=== PATIENT | female | born 1990 | race African-American/Black ===

== ENCOUNTER 2020-03-25 13:41 | Emergency (ER) | payer SELFPAY ==
[~2020-03-25] VITALS: Ht 170.2 cm; Wt 63.5 kg
--- NOTE | 2020-03-25 13:45 | NUR ---
ER BED 1 PT BIB SELF WITH THUMB LACEARTION WITH BLEEDING. APPLIED PRESSURE TO AFFECTED AREA TO STOP BLEEDING. AWAITING TO BE SEEN BY MD.
[2020-03-25 13:46] VITALS: BP 132/86
--- NOTE | 2020-03-25 13:52 | NUR ---
seen by MD with order to do wound cleaning. noted
--- NOTE | 2020-03-25 14:11 | NUR ---
TX DONE ORDERED AND TOLERATED WELL
== END 2020-03-25 14:38 | disposition home or self-care (01) ==
LOC: ER 13:44
DX: S61.002A Unspecified open wound of left thumb without damage to nail, initial encounter (principal); Z98.890 Other specified postprocedural states; W26.0XXA Contact with knife, initial encounter; Y93.89 Activity, other specified; Y92.89 Other specified places as the place of occurrence of the external cause; Y99.8 Other external cause status
CPT/HCPCS: 99282; A6403 ×3

== ENCOUNTER 2021-05-23 18:03 | Inpatient (IN) | payer SELFPAY ==
[~2021-05-23] VITALS: Ht 172.7 cm; Wt 70.8 kg
--- NOTE | 2021-05-23 18:03 | NUR ---
BIBS C/O SEVERE LOWER BACK PAIN THAT RADIATED TO HER ABDOMEN SINCE LAST NIGHT. PT ALSO HAS CHILLS, HEADACHE, NAUSEA, AND VOMITTED LAST NIGHT. PT VITALS ARE WITHIN NORMAL LIMITS. BREATHING IS REGULAR AND UNLABORED.
--- NOTE | 2021-05-23 18:51 | NUR ---
IV ESTABLISHED R AC 20G. LABS WERE COLLECTED AND SENT.
[2021-05-23 19:14] LABS: BASOPHILS # (AUTO) 0.1 K/uL (0.0-0.2); BASOPHILS % (AUTO) 0.5 % (0.0-2.0); EOSINOPHILS % (AUTO) 0.2 % (0.0-6.0); HEMATOCRIT 38 % (33-45); HEMOGLOBIN 11.6 g/dL (11.5-14.8); LYMPHOCYTES # (AUTO) 1.5 K/uL (0.8-4.8); LYMPHOCYTES % (AUTO) 13.5 % (20.0-44.0); MEAN CORPUSCULAR HGB CONC 31 g/dl (31.0-36.0); MEAN CORPUSCULAR VOLUME 71 fL (82-100); MONOCYTES # (AUTO) 1.1 K/uL (0.1-1.30); NEUTROPHILS # (AUTO) 8.2 K/uL (1.8-8.9); NEUTROPHILS % (AUTO) 75.8 % (43.0-81.0); PLATELET COUNT (AUTO) 300 K/uL (150-450); RED BLOOD CELL COUNT(AUTO) 5.32 MIL/uL (4.0-5.2); WHITE BLOOD COUNT (AUTO) 10.9 K/uL (4.3-11.0)
[2021-05-23 19:28] LABS: BILIRUBIN,URINE Negative (NEGATIVE); COLOR,URINE YELLOW (YELLOW); LEUKOCYTE ESTERASE ,URINE Trace (NEGATIVE); NITRITE, URINE Negative (NEGATIVE); PH,URINE 5.5 (5.0-8.0); PROTEIN,URINE Negative (NEGATIVE); UGLUCOSE Negative (NEGATIVE); UROBILINOGEN,URINE 0.2 EU/dL (0.2)
[2021-05-23 19:32] LABS: RBC,URINE NONE SEEN /HPF (0-2)
[2021-05-23 19:33] LABS: BACTERIA,URINE 1+ /HPF (None Seen); SQUAMOUS EPITHELIAL CELL,UR Many /HPF (None Seen)
[2021-05-23] MEDS ORDERED: KETOROLAC TROMETHAMINE 15 MG/ML VIAL ONE (19:43)
[2021-05-23 19:54] LABS: CALCIUM, SERUM 7.9 mg/dL (8.5-10.1); POTASSIUM 4.3 mmol/L (3.5-5.1)
[2021-05-23 19:59] LABS: ALBUMIN 3.2 g/dL (3.4-5.0); BILIRUBIN,DIRECT 0.1 mg/dL (0.0-0.2); BILIRUBIN,TOTAL 0.5 mg/dL (0.2-1.0); TOTAL PROTEIN, SERUM 6.9 g/dL (6.4-8.2)
[2021-05-23] MEDS ORDERED: KETOROLAC TROMETHAMINE INJ 30 MG/ML VIAL IV ONE (20:00)
--- NOTE | 2021-05-23 22:28 | NUR ---
EPIC PANEL PAGED
[2021-05-23] MEDS ORDERED: IV NS 0.9% 1,000 ML BAG IV ONE (22:30)
[2021-05-23] MEDS ORDERED: CEFTRIAXONE 1GM BAG (ER ONLY) 1 GM/50 ML PIGGYBACK IV ONE (22:30)
[2021-05-23] MEDS ORDERED: CEFTRIAXONE 1GM BAG (ER ONLY) 50 ML IV ONE (22:35)
[2021-05-23] MEDS ORDERED: hydrALAZINE HCL IV 20 MG VIAL IV PRN (23:00)
[2021-05-23] MEDS ORDERED: ACETAMINOPHEN 325 MG TABLET PO PRN (23:00)
[2021-05-24 00:55] LABS: CREATININE, URINE 77.3 MG/DL (30.0-125.0)
--- NOTE | 2021-05-24 01:16 | NUR ---
RN notes Received report from ER nurse TRELL Ornelas.
--- NOTE | 2021-05-24 01:16 | NUR ---
REPORT GIVEN TO TRELL BLACKMAN FOR BRUCE
[2021-05-24 01:25] VITALS: BP 128/78
--- NOTE | 2021-05-24 01:25 | NUR ---
PT BEING TRANSPORTED TO UNIT ON [facility] WITH EMT AT BEDSIDE ON STABLE CONDITION.
[2021-05-24 01:40] VITALS: BP 128/78
--- NOTE | 2021-05-24 01:40 | NUR ---
MS RN ADMITTING NOTES RECEIVED PATIENT ON [facility]. PATIENT IS A/O X4. PATIENT IS ABLE TO AMBULATE WITH STEADY GAIT. PATIENT WITH REGULAR AND UNLABORED BREATHING ON ROOM AIR, TOLERATED WELL. NO SIGNS AND SYMPTOMS OF DISTRESS NOTED. NO COMPLAIN OF PAIN OR DISCOMFORT AT THIS TIME. PATIENT HAS STEADY GAIT. IV ACCESS RAC G#20 SL. ACCESS INTACT CLEAN AND FLUSHES WELL. SKIN ASSESSMENT CHECKED AND PERFORMED. PATIENT'S SKIN IS INTACT BUT PATIENT REFUSED TO HAVE HER BACK CHECKED. PATIENT'S BELONGINGS CHECKED BY ADRIANA MARTINEZ. SAFETY PRECAUTIONS ENFORCED WITH BED LOCKED AND AT LOWEST POSITION. SIDERAILS UP X2. CALL LIGHT WITHIN REACH AT ALL TIMES. WILL CONTINUE TO MONITOR PATIENT.
[2021-05-24] MEDS: IV NS 0.9% 1,000 ML IV PRN ×2 (01:43→20:13)
--- NOTE | 2021-05-24 06:40 | NUR ---
RN ms closing notes Pt is resting in bed comfortably. Pt is alert and orientedX4. Respiration is normal in room air. No SOB. VS is stable. Routine meds were given ordered. IV sites at RAC# 20 is clean, intact and infuising NS@ 75 ml/hr. Kept Pt clean, dry and comfortable. All needs met and attended. SAfety precautions is maintained. Bed at low position, brakes locked, side rails upX2 and call light is within reach. Will endorse to am nurse for BRUCE.
[2021-05-24 07:10] LABS: BASOPHILS % (AUTO) 0.5 % (0.0-2.0); EOSINOPHILS % (AUTO) 0.5 % (0.0-6.0); HEMATOCRIT 30 % (33-45); HEMOGLOBIN 9.4 g/dL (11.5-14.8); LYMPHOCYTES # (AUTO) 1.4 K/uL (0.8-4.8); LYMPHOCYTES % (AUTO) 16.1 % (20.0-44.0); MEAN CORPUSCULAR HGB CONC 31 g/dl (31.0-36.0); MEAN CORPUSCULAR VOLUME 71 fL (82-100); MONOCYTES % (AUTO) 11.9 % (2.0-12.0); NEUTROPHILS # (AUTO) 6.2 K/uL (1.8-8.9); PLATELET COUNT (AUTO) 232 K/uL (150-450); RED BLOOD CELL COUNT(AUTO) 4.28 MIL/uL (4.0-5.2); WHITE BLOOD COUNT (AUTO) 8.7 K/uL (4.3-11.0)
[2021-05-24 07:32] LABS: ALBUMIN 3.1 g/dL (3.4-5.0); BILIRUBIN,TOTAL 0.4 mg/dL (0.2-1.0); CALCIUM, SERUM 8.5 mg/dL (8.5-10.1); CREATININE 2.5 mg/dL (0.6-1.3); MAGNESIUM 2.3 mg/dL (1.8-2.4); PHOSPHORUS 4.2 mg/dL (2.5-4.9); POTASSIUM 3.8 mmol/L (3.5-5.1); TOTAL PROTEIN, SERUM 6.8 g/dL (6.4-8.2)
--- NOTE | 2021-05-24 07:49 | NUR ---
RN OPENING NOTES RECEIVED PT RESTING IN BED, NO SIGNS OF ACUTE DISTRESS NOTED. ON ROOM AIR, NO SOB NOTED, BREATHING EVEN AND UNLABORED. IV ACCESS ON RAC #20G INTACT AND PATENT WITH NS @75ML/HR RUNNING. NO C/O PAIN AT THIS TIME. SAFETY MEASURES IN PLACE, BED LOCK AND IN LOWEST POSITION, SR UP X2, CALL LIGHT PLACED WITHIN EASY REACH. WILL CONTINUE TO MONITOR.
[2021-05-24 08:00] VITALS: BP 130/68
[2021-05-24] MEDS: CEFTRIAXONE 1 G in IV D5W 50 ML IV SCH (09:01)
[2021-05-24] MEDS: HEPARIN SODIUM, PORCINE 5000 UNITS/1 ML VIAL SQ SCH ×2 (09:06→20:15)
[2021-05-24] MEDS: MORPHINE SULFATE INJ 2 MG/ML DISP.SYRIN IV PRN ×2 (10:21→16:58)
--- NOTE | 2021-05-24 10:21 | NUR ---
RN NOTES MORPHINE SULFATE 2 MG IVP GIVEN FOR C/O 01/28 LOWER BACK PAIN. WILL RE-ASSESS EFFECTIVENESS OF MEDICATION.
[2021-05-24 16:00] VITALS: BP 122/72
--- NOTE | 2021-05-24 16:58 | NUR ---
RN NOTES MORPHINE SULFATE 2MG IVP GIVEN FOR C/O LOWER BACK PAIN. WILL CONTINUE TO MONITOR.
--- NOTE | 2021-05-24 18:48 | NUR ---
MS RN CLOSING NOTES PATIENT RESTING,ON BED, AWAKE. NO SIGNS OF ACUTE DISTRESS NOTED. REMAINS ON ROOM AIR, NO SOB NOTED, BREATHING EVEN AND UNLABORED. IV ACCESS ON RIGHT HAND INTACT AND PATENT WITH NS @75ML/HR INFUSING WELL. MEDICATED FOR PAIN NEEDED. SAFETY PRECAUTIONS OBSERVED, BED LOCKED AND IN LOWEST POSITION, SR UP X2, CALL LIGHT PLACED WITHIN EASY REACH. WILL ENDORSE TO NEXT SHIFT.
--- NOTE | 2021-05-24 19:30 | NUR ---
MS/RN OPENING NOTE RECEIVED PATIENT RESTING IN BED. AWAKE, ALERT AND ORIENTED X 4. ABLE TO MAKE NEEDS KNOWN. DENIES PAIN AT THIS TIME. CONTINUES ON ROOM AIR WITH NO S/SX OF RESPIRATORY DISTRESS NOTED. IV ACCESS TO RIGHT HAND #22G INTACT AND PATENT. CONTINUES ON IVF NS 0.9% @ 75ML/HR. CONTINUES ON IV ABX. CALL LIGHT WITHIN REACH. ASPIRATION, FALL AND SAFETY PRECAUTIONS MAINTAINED. WILL CONTINUE TO MONITOR.
[2021-05-24 20:00] VITALS: BP 134/61
[2021-05-24] MEDS: ONDANSETRON HCL/PF 4 MG/2 ML VIAL IVP PRN (20:13)
--- NOTE | 2021-05-24 20:15 | NUR ---
MS/RN NOTE PATIENT WITH C/O NAUSEA. ADMINISTERED PRN ZOFRAN PER MD ORDER. WILL CONTINUE TO MONITOR.
--- NOTE | 2021-05-24 20:20 | NUR ---
MS/RN NOTE REPORT GIVEN TO FACUNDO RN FOR BRUCE.
[2021-05-25] MEDS: MORPHINE SULFATE INJ 2 MG/ML DISP.SYRIN IV PRN ×2 (02:17→08:32)
[2021-05-25] MEDS: ONDANSETRON HCL/PF 4 MG/2 ML VIAL IVP PRN (02:17)
--- NOTE | 2021-05-25 02:17 | NUR ---
PT C/O PAIN IN THE ABDOMEN AND NAUSEA. PER PT REQUEST MORPHINE 2MG/ML IV Q4HR PRN, ZOFRAN 4MG/2ML IVP Q6HR PRN ADMINISTERED AT THIS TIME PER ORDER. WILL CONTINUE TO MONITOR.
--- NOTE | 2021-05-25 06:30 | NUR ---
MS RN CLOSING NOTE PT REMAINED STABLE THROUGHOUT SHIFT. WILL ENDORSE TO ONCOMING RN FOR BRUCE.
[2021-05-25] MEDS: IV NS 0.9% 1,000 ML IV PRN (06:50)
[2021-05-25 07:08] LABS: BASOPHILS # (AUTO) 0.1 K/uL (0.0-0.2)
[2021-05-25 07:09] LABS: CALCIUM, SERUM 8.7 mg/dL (8.5-10.1); CREATININE 2.5 mg/dL (0.6-1.3); MAGNESIUM 1.9 mg/dL (1.8-2.4); POTASSIUM 3.5 mmol/L (3.5-5.1)
--- NOTE | 2021-05-25 07:19 | NUR ---
RECEIVED REPORT FROM LAB JACE, REPORTING SRITICAL LAB VALUE FOR PLT OF [id number], CHARGE NURSE NALINI MADE AWARE
--- NOTE | 2021-05-25 07:24 | NUR ---
CALLED THE LAB AND SPOKE TO CHUCK, CHARGE NURSE ART AND NALINI ASKED FOR HIM TO REDRAW THE BLOOD AGAIN BEFORE BREAKFAST
--- NOTE | 2021-05-25 07:26 | NUR ---
RN NOTES PATIENT SLEEPING IN BED, ABLE TO BE AWAKENED. A/O X4, ABLE TO MAKE NEEDS KNOWN. BREATHING EVEN AND UNLABORED ON ROOM AIR. IV LINE INTACT AND PATENT, IVF INFUSING WELL. AMBULATORY W/ STEADY GAIT. SAFETY MEASURES IN PLACE. WILL CONTINUE TO MONITOR.
--- NOTE | 2021-05-25 07:33 | NUR ---
RN NOTES SEEN CURRENTLY RESTING IN BED; INFORMED EDITOR BOOK TO HOLD BREAKFAST BEFORE BLOOD DRAW IS DONE FOR REDRAW PER SUPERVISOR CHLORINE LIQUEFACTION RN.
[2021-05-25 08:16] VITALS: BP 128/85
[2021-05-25] MEDS: CEFTRIAXONE 1 G in IV D5W 50 ML IV SCH (08:25)
[2021-05-25] MEDS: HEPARIN SODIUM, PORCINE 5000 UNITS/1 ML VIAL SQ SCH ×2 (08:25→21:15)
[2021-05-25 09:34] LABS: HEMOGLOBIN 9.8 g/dL (11.5-14.8); RED BLOOD CELL COUNT(AUTO) 4.59 MIL/uL (4.0-5.2); WHITE BLOOD COUNT (AUTO) 7.6 K/uL (4.3-11.0)
[2021-05-25 09:35] LABS: BASOPHILS % (AUTO) 0.8 % (0.0-2.0); EOSINOPHILS % (AUTO) 1.3 % (0.0-6.0); HEMATOCRIT 33 % (33-45); LYMPHOCYTES # (AUTO) 1.8 K/uL (0.8-4.8); LYMPHOCYTES % (AUTO) 23.2 % (20.0-44.0); MEAN CORPUSCULAR HGB CONC 30 g/dl (31.0-36.0); MEAN CORPUSCULAR VOLUME 71 fL (82-100); MONOCYTES # (AUTO) 0.8 K/uL (0.1-1.30); NEUTROPHILS # (AUTO) 4.9 K/uL (1.8-8.9); NEUTROPHILS % (AUTO) 64.7 % (43.0-81.0); PLATELET COUNT (AUTO) 256 K/uL (150-450)
[2021-05-25] MEDS ORDERED: POLYETHYLENE GLYCOL 3350 17 GM POWD.PACK PO PRN (11:30)
--- NOTE | 2021-05-25 13:23 | NUR ---
RN NOTES BLADDER SCAN DONE. PVR IS 18ML. OPTICAL EFFECTS LINE UP PERSON MADE AWARE W/ NNO AT THIS TIME. FLUIDS PAUSED PER PATIENT REQUEST.
[2021-05-25 16:06] VITALS: BP 127/86
--- NOTE | 2021-05-25 18:34 | NUR ---
RN NOTES PATIENT RESTING IN BED, DOZING INTERMITTENTLY, ABLE TO BE AWAKENED. A/O X4. CONTINUES ON ROOM AIR W/ NON-LABORED BREATHING. IV LINE INTACT AND PATENT. IVF PAUSED AT THIS TIME PER PATIENT REQUEST. ABLE TO GO TO THE BATHROOM, NO COMPLAINTS OF RETAINING URINE AT THE MOMENT. SAFETY MEASURES MAINTAINED. WILL ENDORSE TO TUBE BENDER HAND RN FOR BRUCE.
--- NOTE | 2021-05-25 19:00 | NUR ---
MS RN OPENING NOTE RECEIVED PT AWAKE IN BED. A/OX4. NO SOB NOTED. NO S/S RESPIRATORY DISTRESS. PT IS AMBULATORY. PT HAS NO C/O PAIN AT THIS TIME. IV ACCESS IN RIGHT HAND # 22, INFUSING NS @ 75ML/HR. IV IS INTACT, PATENT, AND FLUSHING WELL. SAFETY MEASURES MAINTAINED . BED IN LOWEST LOCKED POSITION, HOB ELEVATED, SIDE RAILS UP X2. CALL LIGHT AND TABLE WITHIN REACH. WILL CONTINUE WITH PLAN OF CARE.
[2021-05-25 20:00] VITALS: BP 137/74
[2021-05-26] MEDS: MORPHINE SULFATE INJ 2 MG/ML DISP.SYRIN IV PRN ×2 (06:11→17:51)
--- NOTE | 2021-05-26 06:11 | NUR ---
PT C/O ACHING 9/10 PAIN ON HER ABDOMEN, PER PT REQUEST MORPHINE 2MG/1ML IV Q4HR PRN ADMINISTERED AT THIS TIME PER ORDER. WILL CONTINUE TO MONITOR
--- NOTE | 2021-05-26 06:23 | NUR ---
MS RN CLOSING NOTE PT REMAINED STABLE THROUGHOUT SHIFT. WILL ENDORSE TO ONCOMING RN FOR BRUCE.
--- NOTE | 2021-05-26 07:49 | NUR ---
MS RN OPENING NOTE Patient in bed, awake. A/O x 4, able to make needs known. On room air, breathing evenly and unlabored. No SOB or s/s of distress noted. IV access on Right hand #22G, intact and patent, infusing NS @ 75 ml/hr. Safety measures in place: bed in low, locked position, siderails up x 2, call light within reach. Will continue to monitor.
[2021-05-26 07:57] LABS: BASOPHILS % (AUTO) 0.6 % (0.0-2.0); EOSINOPHILS % (AUTO) 1.1 % (0.0-6.0); HEMATOCRIT 32 % (33-45); HEMOGLOBIN 9.8 g/dL (11.5-14.8); LYMPHOCYTES # (AUTO) 1.4 K/uL (0.8-4.8); LYMPHOCYTES % (AUTO) 21.4 % (20.0-44.0); MEAN CORPUSCULAR HGB CONC 31 g/dl (31.0-36.0); MEAN CORPUSCULAR VOLUME 71 fL (82-100); MONOCYTES # (AUTO) 0.7 K/uL (0.1-1.30); MONOCYTES % (AUTO) 10.4 % (2.0-12.0); NEUTROPHILS # (AUTO) 4.5 K/uL (1.8-8.9); NEUTROPHILS % (AUTO) 66.5 % (43.0-81.0); PLATELET COUNT (AUTO) 261 K/uL (150-450); RED BLOOD CELL COUNT(AUTO) 4.48 MIL/uL (4.0-5.2); WHITE BLOOD COUNT (AUTO) 6.7 K/uL (4.3-11.0)
[2021-05-26 08:31] LABS: CALCIUM, SERUM 8.6 mg/dL (8.5-10.1); CREATININE 2.5 mg/dL (0.6-1.3); MAGNESIUM 2.2 mg/dL (1.8-2.4); POTASSIUM 3.5 mmol/L (3.5-5.1)
[2021-05-26] MEDS: HEPARIN SODIUM, PORCINE 5000 UNITS/1 ML VIAL SQ SCH ×2 (08:36→08:45)
[2021-05-26] MEDS: CEFTRIAXONE 1 G in IV D5W 50 ML IV SCH (08:37)
[2021-05-26 08:41] VITALS: BP 147/81
[2021-05-26] MEDS ORDERED: IV NS 0.9% 1,000 ML IV PRN (13:00)
[2021-05-26] MEDS ORDERED: IRON ASPGLY&PS/C/B12/FA/CA/SUC 1 CAP CAPSULE PO SCH (13:30)
[2021-05-26] MEDS: FERROUS SULFATE (325 MG) 325 MG/TAB TABLET PO SCH (14:10)
[2021-05-26 16:00] VITALS: BP 137/92
--- NOTE | 2021-05-26 18:46 | NUR ---
MS RN CLOSING NOTE Patient in bed, resting comfortably. A/O x 4, able to make needs known. Stable on room air, no SOB or s/s of distress noted. IV access on RAC #20G, intact and patent, infusing NS @ 125 ml/hr. All needs attended to. Due meds given. Safety measures maintained: bed in low, locked position, siderails up x 2, call light within reach. Will endorse to banking center manager nurse for BRUCE.
--- NOTE | 2021-05-26 19:00 | NUR ---
MS RN OPENING NOTE RECEIVED PT AWAKE IN BED. A/OX4. NO SOB NOTED. NO S/S RESPIRATORY DISTRESS. PT IS AMBULATORY. PT HAS NO C/O PAIN AT THIS TIME. IV ACCESS IN RIGHT AC # 20, INFUSING NS @ 125ML/HR. IV IS INTACT, PATENT, AND FLUSHING WELL. SAFETY MEASURES MAINTAINED . BED IN LOWEST LOCKED POSITION, HOB ELEVATED, SIDE RAILS UP X2. CALL LIGHT AND TABLE WITHIN REACH. WILL CONTINUE WITH PLAN OF CARE.
[2021-05-26 20:00] VITALS: BP_SYST 140; BP_SYST 144; BP_DIAS 88; BP_DIAS 96
[2021-05-27] VITALS: BP 148/99
[2021-05-27 04:00] VITALS: BP 161/91
--- NOTE | 2021-05-27 06:30 | NUR ---
MS RN CLOSING NOTE PT REMAINED STABLE THROUGHOUT SHIFT. WILL ENDORSE TO ONCOMING RN FOR BRUCE.
[2021-05-27 07:05] LABS: BASOPHILS % (AUTO) 0.5 % (0.0-2.0); EOSINOPHILS % (AUTO) 1.9 % (0.0-6.0); HEMATOCRIT 33 % (33-45); LYMPHOCYTES # (AUTO) 1.5 K/uL (0.8-4.8); LYMPHOCYTES % (AUTO) 22.6 % (20.0-44.0); MEAN CORPUSCULAR HGB CONC 31 g/dl (31.0-36.0); MEAN CORPUSCULAR VOLUME 71 fL (82-100); MONOCYTES # (AUTO) 0.7 K/uL (0.1-1.30); MONOCYTES % (AUTO) 10.9 % (2.0-12.0); NEUTROPHILS # (AUTO) 4.1 K/uL (1.8-8.9); NEUTROPHILS % (AUTO) 64.1 % (43.0-81.0); PLATELET COUNT (AUTO) 286 K/uL (150-450); RED BLOOD CELL COUNT(AUTO) 4.62 MIL/uL (4.0-5.2); WHITE BLOOD COUNT (AUTO) 6.5 K/uL (4.3-11.0)
[2021-05-27] MEDS: MORPHINE SULFATE INJ 2 MG/ML DISP.SYRIN IV PRN (07:18)
--- NOTE | 2021-05-27 07:18 | NUR ---
PT C/O ACHING 9/10 PAIN ON HER ABDOMEN, PER PT REQUEST MORPHINE 2MG/1ML IV Q4HR PRN ADMINISTERED AT THIS TIME PER ORDER. WILL CONTINUE TO MONITOR
[2021-05-27 07:25] LABS: CALCIUM, SERUM 9.3 mg/dL (8.5-10.1); MAGNESIUM 1.9 mg/dL (1.8-2.4); POTASSIUM 3.4 mmol/L (3.5-5.1)
--- NOTE | 2021-05-27 08:06 | NUR ---
MS RN OPENING NOTE Patient in bed, awake. A/O x 4, able to make needs known. On room air, breathing evenly and unlabored. No SOB or s/s of distress noted. IV access on LAC #22G, intact and patent, infusing NS @ 125 ml/hr. Safety measures in place: bed in low, locked position, siderails up x 2, call light within reach. Will continue to monitor.
[2021-05-27 08:11] VITALS: BP 160/94
[2021-05-27] MEDS: CEFTRIAXONE 1 G in IV D5W 50 ML IV SCH (09:00)
[2021-05-27] MEDS: FERROUS SULFATE (325 MG) 325 MG/TAB TABLET PO SCH (09:40)
[2021-05-27] MEDS ORDERED: CIPR500T5 PO (10:38)
[2021-05-27] MEDS: POTASSIUM CHLORIDE 10 MEQ TABLET.SA PO ONE ×3 (11:00→13:42)
--- NOTE | 2021-05-27 15:00 | NUR ---
RN NOTE Release of info faxed to Medical Records, patient instructed on what to do.
--- NOTE | 2021-05-27 15:30 | NUR ---
DISCHARGE NOTE Received order for discharge. Patient A/O x 4, able to make needs known. Patient is breathing evenly and unlabored on room air, no s/s of distress noted. Patient does not complain of pain or any discomfort. Patient was given discharge instructions both verbally and in written form, verbalized understanding. Patient belonging accounted for, belonging sheet signed. RX prescription given to patient by Ms. Scott. IV access removed, catheter tip intact. Pressure dressing applied, no signs of bleeding noted. Patient left in stable condition via private car with family.
== END 2021-05-27 15:30 | disposition home or self-care (01) | DRG 690 ==
LOC: ER 18:05 → MED 23:00
PROVIDERS: ADMIT Internal Medicine; ATTEND Student in an Organized Health Care Education/Training Program
DX: N12 Tubulo-interstitial nephritis, not specified as acute or chronic (principal); E44.1 Mild protein-calorie malnutrition; N17.0 Acute kidney failure with tubular necrosis; K59.00 Constipation, unspecified; E86.0 Dehydration; D50.9 Iron deficiency anemia, unspecified; F12.10 Cannabis abuse, uncomplicated; R33.9 Retention of urine, unspecified; E87.6 Hypokalemia
CPT/HCPCS: 36415; 80048-TC; 80053-TC; 80076-TC; 81001; 82550-TC; 82570-TC; 83540-TC; 83605-TC; 83690-TC; 83735-TC; 84100-TC; 84300-TC; 84703-TC; 85025-TC; 87040-TC; 87081-TC; 87086-TC; G0378; J0696; J1644; J1885; J2270; J2405; J7030; J7060